=== PATIENT | male | born 1975 | race African-American/Black ===

== ENCOUNTER 2016-12-04 17:49 | Emergency (ER) | payer SELFPAY ==
[~2016-12-04] VITALS: Ht 190.5 cm; Wt 131.5 kg
--- NOTE | 2016-12-04 19:05 | NUR ---
PT IS IN ROOM #1A. DR ZAMORA EVALUATED THE PT.
[2016-12-04 19:12] LABS: BASOPHILS # (AUTO) 0.1 K/uL (0.0-8.0); EOSINOPHILS # (AUTO) 0.1 K/uL (0.0-0.7); EOSINOPHILS % (AUTO) 1.3 % (0.0-7.0); HEMATOCRIT 40.1 % (40-50); HEMOGLOBIN 12.9 G/DL (14.0-18.0); LYMPHOCYTES # (AUTO) 1.6 K/UL (0.8-4.8); LYMPHOCYTES % (AUTO) 23.2 % (20.5-51.5); MEAN CORPUSCULAR HEMOGLOBIN 26.6 UUG (27.0-31.0); MEAN CORPUSCULAR HGB CONC 32 g/dL (32.0-37.0); MEAN CORPUSCULAR VOLUME 82.7 FL (82.0-92.0); MONOCYTES # (AUTO) 0.6 K/UL (0.1-1.30); MONOCYTES % (AUTO) 8.5 % (0.0-11.0); NEUTROPHILS # (AUTO) 4.4 K/UL (1.8-8.9); PLATELET COUNT (AUTO) 308 K/UL (150-450); RED BLOOD CELL COUNT(AUTO) 4.85 MIL/UL (4.7-6.1); WHITE BLOOD COUNT (AUTO) 6.8 K/UL (4.0-11.2)
[2016-12-04 19:26] LABS: CREATININE 0.9 mg/dL (0.6-1.3); POTASSIUM 3.8 mmol/L (3.5-5.1)
[2016-12-04 19:30] LABS: BILIRUBIN,DIRECT 0.1 mg/dL (0.0-0.2); BILIRUBIN,TOTAL 0.4 mg/dL (0.2-1.0); TOTAL PROTEIN, SERUM 7.4 g/dL (6.4-8.2)
--- NOTE | 2016-12-04 20:02 | NUR ---
Patient discharged to home in stable conditon. Written and verbal after care instructions given. Patient verbalizes understanding of instructions. Ambulated from Er with stable gait. All belongings with patient. Peripheral IV removed prior to dischrage.
[2016-12-04 20:05] VITALS: BP 127/76
== END 2016-12-04 20:07 | disposition home or self-care (01) ==
LOC: ER 17:53
DX: R19.7 Diarrhea, unspecified (principal); R09.81 Nasal congestion; J45.909 Unspecified asthma, uncomplicated
CPT/HCPCS: 36415; 83690; 85025; A4663; J1885; J2405; J3490; J7030